=== PATIENT | female | born 1965 | race Caucasian/White ===

== ENCOUNTER 2021-08-16 11:14 | Outpatient (RCR) | payer OTHER | END 2021-08-17 15:24 | disposition home or self-care (01) | LOC: WSOH 11:14 | DX: S30.1XXA Contusion of abdominal wall, initial encounter (principal); E11.40 Type 2 diabetes mellitus with diabetic neuropathy, unspecified; I10 Essential (primary) hypertension; E78.00 Pure hypercholesterolemia, unspecified; Z90.710 Acquired absence of both cervix and uterus; W01.10XA Fall on same level from slipping, tripping and stumbling with subsequent striking against unspecified object, initial encounter ==

== ENCOUNTER 2021-09-13 14:15 | Outpatient (RCR) | payer OTHER | END 2021-09-24 15:22 | disposition home or self-care (01) | LOC: WSOH 14:15 | DX: S30.1XXD Contusion of abdominal wall, subsequent encounter (principal); W01.10XD Fall on same level from slipping, tripping and stumbling with subsequent striking against unspecified object, subsequent encounter; I10 Essential (primary) hypertension; E78.00 Pure hypercholesterolemia, unspecified; E11.40 Type 2 diabetes mellitus with diabetic neuropathy, unspecified; Y99.0 Civilian activity done for income or pay; Z90.710 Acquired absence of both cervix and uterus ==